=== PATIENT | female | born 1985 | race Caucasian/White ===

== ENCOUNTER 2023-07-06 18:30 | Emergency (ER) | payer BC ==
[2023-07-06 19:07] VITALS: BP 110/67; RESP 18; TEMP 97; O2SAT 97
--- NOTE | 2023-07-06 19:32 | ERPHSYRPT ---
- History of Present Illness Time Seen by Provider: 07/06/23 19:31 Historian: patient, family Exam Limitations: no limitations Patient Subjective Stated Complaint: pt here for constipation, she states she thinks last bm was 06/30. has not tried any intervention Triage Nursing Assessment: pt alert, walked in, resp easy, skin w/d/p. abd large and rounded, no nausea or vomiting Physician History: This is a 38-year-old white female patient who presents to the emergency department with constipation for approximately 6 days. Patient's last bowel movement was on 06/30/2023. She has not tried any interventions whatsoever to help relieve her constipation. Patient underwent a cholecystectomy approximately 1 month ago and has had no problems with bowel movement until 6 days ago. Patient lives in [place], [place]. Patient was in [place] and was passing through and her abdominal pain and distention that is present now, was worsening and therefore they stopped here. Patient has a history of depression, hypertension, morbid obesity, hyperlipidemia. Patient has not had any vomiting or diarrhea. She has not had a fever or cough. She denies chest pain. Patient stated that she was able to feel stool at the anorectal orifice. However when she attempts to push, she feels as though she is going to pass out. Timing/Duration: day(s) (6) Quality: fullness, pressure Abdominal Pain Onset Location: generalized abdomen Pain Radiation: no radiation Severity of Pain-Max: moderate Severity of Pain-Current: moderate Modifying Factors: Improves With: nothing Associated Symptoms: denies symptoms Previous symptoms: no prior history Allergies/Adverse Reactions: No Known Drug Allergies Allergy (Unverified 07/06/23 18:59) Home Medications: Atorvastatin Calcium [Lipitor 20MG Tablet] 20 mg PO DAILY 07/06/23 [History] Buspirone HCl 5 mg [Buspar 5 mg] 5 mg PO DAILY 07/06/23 [History] Ferrous Sulfate [Iron] 1 ea DAILY 07/06/23 [History] Hydrochlorothiazide 25 mg [hydroDIURIL 25 MG] 25 mg PO DAILY 07/06/23 [History] Lisinopril 10 mg [Zestril 10 MG] 10 mg PO DAILY 07/06/23 [History] [place]-3 Fatty Acids/Fish Oil [Fish Oil 1,000 mg Capsule] 1,000 mg PO DAILY 07/06/23 [History] Ondansetron ODT 4 MG [Zofran Odt 4 mg] 4 mg PO Q6H PRN PRN 07/06/23 [History] Sertraline HCl 50 mg [Zoloft 50 mg Tablet] 50 mg PO DAILY 07/06/23 [History] Vit D3/Vit K2/Calc Frutoborate [Move Free [id number]-[id number]] 1 each PO DAILY 07/06/23 [History] Hx Tetanus, Diphtheria Vaccination/Date Given: No Hx Influenza Vaccination/Date Given: No Hx Pneumococcal Vaccination/Date Given: No Immunizations Up to Date: Yes Travel Risk - International Travel Have you traveled outside of the country in past 3 weeks: No - Coronavirus Screening Are you exhibiting any of the following symptoms?: No Close contact with a COVID-19 positive Pt in past 14-21 Days: No - Vaccine Status Have you recieved a Covid-19 vaccination: Yes Telephone Solicitor: [employer] - Vaccination Dates Date of 2cond Vaccination (if applicable): 2020 - Review of Systems Constitutional: No Symptoms Eyes: No Symptoms Ears, Nose, & Throat: No Symptoms Respiratory: No Symptoms Cardiac: No Symptoms Abdominal/Gastrointestinal: Abdominal Pain, Constipation, No Appetite Changes Genitourinary Symptoms: No Symptoms Musculoskeletal: No Symptoms Skin: No Symptoms Neurological: No Symptoms Psychological: No Symptoms Endocrine: No Symptoms Hematologic/Lymphatic: No Symptoms Immunological/Allergic: No Symptoms All Other Systems: Reviewed and Negative - Past Medical History Cardiac History: High Cholesterol, Hypertension - Past Surgical History Past Surgical History: Yes Gastrointestinal: Cholecystectomy - Social History Smoking Status: Never smoker Exposure to second hand smoke: No Drug Use: none Patient Lives Alone: No - Female History Hx Last Menstrual Period: unsure Hx Now: No - Nursing Vital Signs Nursing Vital Signs: Initial Vital Signs Temperature 97.0 F 07/06/23 19:06 Pulse Rate 72 07/06/23 19:06 Respiratory Rate 18 07/06/23 19:06 Blood Pressure 110/67 07/06/23 19:06 O2 Sat by Pulse Oximetry 97 07/06/23 19:06 Pain Scale Pain Intensity 8 - Physical Exam General Appearance: mild distress, alert, anxiety, obese Eye Exam: PERRL/EOMI, eyes nml inspection Ears, Nose, Throat Exam: normal ENT inspection, moist mucous membranes Neck Exam: normal inspection, non-tender, supple, full range of motion Respiratory Exam: normal breath sounds, lungs clear, airway intact, No chest tenderness, No respiratory distress Cardiovascular Exam: regular rate/rhythm, normal heart sounds, normal peripheral pulses Gastrointestinal/Abdomen Exam: soft, tenderness (Mild diffuse), distention (Mild diffuse), No guarding, No rebound Rectal Exam: not done Back Exam: normal inspection Extremity Exam: normal inspection, normal range of motion, pelvis stable Neurologic Exam: alert, oriented x 3, cooperative, blade boner II-XII nml as tested, normal mood/affect, nml cerebellar function, nml station & gait, sensation nml Skin Exam: normal color, warm, dry Lymphatic Exam: No adenopathy SpO2 Interpretation: normal SpO2: 97 O2 Delivery: Room Air - Course Nursing assessment & vital signs reviewed: Yes Ordered Tests: Active Orders 24 hr Category Date Time Status Enema STAT Care 07/06/23 20:00 Active KUB Stat Exams 07/06/23 19:32 Taken - Progress Progress: improved Progress Note: 07/06/23 19:38 This patient's medical issue is 1 of low complexity. Level of complexity in the workup performed is based on review the patient's past medical history, review of the patient's medication list, review the patient's drug allergy list, history present illness and physical findings on examination. The workup in this patient includes a KUB. If there is stool in the sigmoid rectal vault region, we will use a soapsuds enema to see if we can provide this patient with relief of her constipation. If there is no evidence of stool in this region, we will proceed with a CAT scan of the abdomen pelvis. 07/06/23 21:10 Patient had excellent response to the enema. Patient states her abdominal pain is 100% better. Counseled pt/family regarding: diagnosis, rad results Medical Desision Making - Independent Historian Additional History obtained from: Spouse - Diagnostic Testing Diagnostic test were ordered, analyzed, and reviewed by me: No - Risk of complications Minimal Risk: Minimal risk of morbidity - Departure Departure Disposition: Home Clinical Impression: Constipation Condition: Stable Critical Care Time: No Referrals: TERI PADGETT NP [Primary Care Provider] - Follow up/PCP as directed Additional Instructions: Stay on a clear liquid diet for the next 12 to 24 hours. Use [id number] MiraLAX as instructed on the packet. Obtain a fleets enema from the pharmacy and used tomorrow morning. May also increase your activity level, increase your fiber in your diet. For perianal comfort sitz bath in warm soapy water and/or sitz bath 2-3 times a day. Call your primary care provider tomorrow, July 07, 2023, to obtain a follow-up appointment in the next 3 to 5 days.
[2023-07-06 21:23] VITALS: PULSE 80
--- NOTE | 2023-07-07 08:51 | XRAY ---
Indication: Constipation. Comparison: None KUB nonacute and nonobstructed with minimal/mild scattered colonic fecal debris including mild rectal impaction. Solid organs and osseous structures unremarkable.
== END 2023-07-06 21:23 | disposition home or self-care (01) ==
LOC: ED 18:30
DX: K59.00 Constipation, unspecified (principal); I10 Essential (primary) hypertension; E78.5 Hyperlipidemia, unspecified; Z79.899 Other long term (current) drug therapy
CPT/HCPCS: 74018; 99282